=== PATIENT | female | born 1945 | race Caucasian/White ===

== ENCOUNTER 2017-02-22 14:08 | Day surgery (SDC) | payer MEDICARE, BC ==
[~2017-02-22 14:08] MED LIST: AMLO2.5T PO; ESOM1CAP16 PO; HYDR-3535 PO; IPRAAER IN; MULT-65 PO; VITA500015 PO
[2017-02-22 14:29] VITALS: BP 180/90; PULSE 96; RESP 20; TEMP 98; O2SAT 98
[2017-02-22] MEDS ORDERED: MULT1TAB46 PO (14:38)
[2017-02-22] MEDS ORDERED: ERGO2000 PO (14:38)
[2017-02-22] MEDS ORDERED: AMLO2.5T PO (14:38)
[2017-02-22] MEDS ORDERED: HYDR-3583 PO (14:38)
[2017-02-22] MEDS ORDERED: ESOM1CAP16 PO (14:38)
[2017-02-22] MEDS ORDERED: IPRAAER INH (14:38)
[2017-02-22] MEDS ORDERED: SIMV20TA PO (14:38)
--- NOTE | 2017-02-22 15:54 | RADRPT ---
EXAM DATE/TIME: 02/22/2017 00:00 [facility] COMPARISON : No previous studies available for comparison. INDICATIONS : consult for mesenteric angiogram OBJECTIVE: Temperature: 98.0 Heart Rate: 96 Blood Pressure: 180/90 Respiratory: 18 Oximetry: 98 PNEUMONIA VACCINE: NO HISTORY OF PRESENT ILLNESS: 71-year-old female with chronic abdominal pain. She states the pain began immediately following her a ortobifemoral bypass graft surgery. She states the pain is worse since his onset. The pain is debilit ating and happens constantly throughout the day. Only complete inactivity helps decrease the pain. Faviola frias describes the pain as a combination of dull ache and sharp pain. It is migratory in nature sometime s occurring in the subxiphoid region but also scattered throughout the remaining aspects of the abdom en. She reports one episode of mild gaseous distention within the left lower quadrant associated with the pain. Denies any nausea. States that she has had a colonoscopy that was negative per her report. She's having to take oxycodone approximately 3 times a day for the discomfort. She is unsure as to t he association of the pain with eating as she states she is not able to eat with the exception of adama y small amounts. Intermittently. PAST MEDICAL HISTORY : 1. Diverticulitis. 2. Mesenteric ischemia. 3. Gastroesopahgeal reflux disease. 4. gastric Ulcers. 5. Chronic obstructive pulmonary disease. 6. Hypercholesterolemia. PAST SURGICAL HISTORY : 1. partial gastrectomy 2. Appendectomy 3. revision right femoral artery (? aorto bifem bypass) SOCIAL HISTORY : No alcohol use. Tobacco; current smoker although less than previous. Now smokes 3 cigarettes a day. Patient has a ALLERGIES: 1. Latex 1. Zocor (Simvastatin) 20 mg q.h.s. 2. hydrocodone 10/325 mg t.i.d. 3. amlodipine 2.5 mg q.d. 4. omeprazole 40 mg q.d. 5. combivent inhaler b.i.d. 6. multivitamin q.d. vitamin d3 q.d. PHYSICAL EXAMINATION: General: Awake and alert. Sitting comfortably in a chair. No acute distress. Cardiovascular: Regular rate and rhythm. Respiratory: Clear to auscultation bilaterally. Abdomen: Nondistended. Normal auscultation. Nontender. Pulses: Easily palpable left radial pulse. Dopplerable left ulnar pulse. IMAGING STUDIES: CTA of the abdomen and pelvis from [facility] January 25, 2017. These images show an aortobifemo ral bypass. Atherosclerotic disease which is largely noncalcified involving the SMA origin generates a high-grade stenosis. There is a mild stenosis involving the celiac origin. The ARNOLD is occluded. ASSESSMENT: Chronic abdominal pain with significant stenosis involving the SMA and occluded ARNOLD. It is difficult to ascertain whether the patient's pain is truly relating to mesenteric ischemia. I had a long discus brandyn with the patient concerning her abdominal pain and how it may relate to insufficient blood flow to the bowel. I also explained to her that I could not guarantee this procedure would resolve or even improve her abdominal pain. I explained the risks, benefits, and alternatives of the procedure. She wished to proceed with the exam. PLAN: Left arm radial approach mesenteric angiogram with stenting of the SMA stenosis. TIME SPENT: 30 minutes Mike Garza Jr., MD on February 22, 2017 at 15:42 Board Certified Radiologist. This report was verified electronically.
== END 2017-02-22 15:30 | disposition home or self-care (01) ==
LOC: HROP 14:08 → HRIP 14:14 → HROP 15:30
PROVIDERS: ATTEND Surgery Vascular Surgery
DX: K55.1 Chronic vascular disorders of intestine (principal); G89.29 Other chronic pain; R10.9 Unspecified abdominal pain; K21.9 Gastro-esophageal reflux disease without esophagitis; J44.9 Chronic obstructive pulmonary disease, unspecified; E78.00 Pure hypercholesterolemia, unspecified; F17.210 Nicotine dependence, cigarettes, uncomplicated; Z87.19 Personal history of other diseases of the digestive system; Z79.51 Long term (current) use of inhaled steroids; Z79.899 Other long term (current) drug therapy

== ENCOUNTER 2017-03-03 07:20 | Observation (INO) | payer MEDICARE, BC ==
[~2017-03-03] VITALS: Ht 160 cm; Wt 35.9 kg
[~2017-03-03 07:20] MED LIST changes: +ERGO2000 PO; -HYDR-3535 PO; +HYDR-3583 PO; -IPRAAER IN; +IPRAAER INH; -MULT-65 PO; +MULT1TAB46 PO; +SIMV20TA PO; -VITA500015 PO
[2017-03-03] MEDS ORDERED: IODIXANOL 320 MG/ML 50 ML VIAL (for RAD SPEC) I-ARTERIAL ONE ×2 (07:21→11:00)
[2017-03-03 07:50] VITALS: BP 153/75; PULSE 59; RESP 16; TEMP 97.7; O2SAT 94
[2017-03-03] MEDS ORDERED: SODIUM CHLOR 0.9% 1000 ML INJ 1,000 ML IV SCH (08:00)
[2017-03-03 08:33] LABS: AUTOMATED NEUTROPHIL # 4.8 TH/MM3 (1.8-7.7); BASOPHIL % 0.8 % (0.0-2.0); EOSINOPHIL # 0.3 TH/MM3 (0-0.4); EOSINOPHIL % 4.5 % (0.0-4.0); HEMATOCRIT 41.9 % (35.0-46.0); HEMO FLAGS DIFF FINAL; LYMPH % 17.5 % (9.0-44.0); LYMPHOCYTE # 1.2 TH/MM3 (1.0-4.8); MEAN CELL VOLUME 92.6 FL (80.0-100.0); MEAN CORPUSCULAR HEMOGLOBIN 29.8 PG (27.0-34.0); MEAN CORPUSCULAR HGB CONC 32.2 % (32.0-36.0); MONO % 8.9 % (0.0-8.0); NEUT % 68.3 % (16.0-70.0); PLATELET COUNT 188 TH/MM3 (150-450); RED BLOOD COUNT 4.53 MIL/MM3 (4.00-5.30); RED CELL DISTRIBUTION WIDTH 14.1 % (11.6-17.2)
[2017-03-03 08:34] LABS: BASOPHIL # 0.1 TH/MM3 (0-0.2)
[2017-03-03 08:36] LABS: APTT (PATIENT) 24.3 SEC (24.3-30.1); PROTHROMBIN TIME - PATIENT 10.5 SEC (9.8-11.6)
[2017-03-03 08:39] LABS: BICARBONATE 26.4 MEQ/L (21.0-32.0); POTASSIUM 3.6 MEQ/L (3.5-5.1)
[2017-03-03] MEDS ORDERED: MIDAZOLAM HCL 2 MG/2 ML VIAL ONE ×2 (09:57→17:40)
[2017-03-03] MEDS ORDERED: fentaNYL CITRATE 250 MCG/5 ML AMP ONE ×2 (09:57→16:37)
[2017-03-03] MEDS ORDERED: ceFAZolin 2 GM PREMIX 50 ML ONE (11:18)
[2017-03-03 13:15] VITALS: BP 138/79; PULSE 62; RESP 16; TEMP 97.7; O2SAT 93
[2017-03-03 13:30] VITALS: BP 114/62; PULSE 62; RESP 16; O2SAT 93
[2017-03-03] MEDS ORDERED: NITROGLYCERIN 2% OINT 1 GM PACKET ONE (13:37)
[2017-03-03 13:45] VITALS: BP 114/67; PULSE 62; RESP 16; O2SAT 93
--- NOTE | 2017-03-03 13:53 | PD.RAD ---
Post Procedure Progress Note Pre Procedure Diagnosis: (1) Mesenteric artery stenosis (2) Abdominal pain Post Procedure Diagnosis: (1) Abdominal pain (2) Mesenteric artery stenosis Procedure Date: Mar 03, 2017 Supervising Radiologist: Mike Garza JR Proceduralist/Assist: Steffanie Stallworth, RT(R), Kasey Stark RT(R)(), Campos Guzman RT(R)() Anesthesia: Conscious Sedation Plan of Activity Patient to Unit: ROPU Patient Condition: Good See PACS Report for procedural detail/treatment Vascular-Arterial Procedure Procedure 1 Procedure Site: Superior Mesenteric Artery Procedure(s): Stent Placement Access Access Site(s): Left Brachial Artery Findings: SMA angiogram shows significant stenosis. This responded well to primary stenting. Good flow noted through the SMA following the stenting. Plan F/U with engine setter as ordered. Jr. Greg,Mike Camacho MD Mar 03, 2017 13:53
[2017-03-03 14:15] VITALS: BP 153/83; PULSE 62; RESP 16; O2SAT 94
[2017-03-03] MEDS ORDERED: HYDROmorphone HCL PF 2 MG/ML VIAL ONE (17:29)
[2017-03-03] MEDS ORDERED: HEPARIN SODIUM - IV 10,000 UNITS/10 ML VIAL ONE (17:58)
[2017-03-03] MEDS ORDERED: NITROGLYCERIN 1000 MCG/5 ML VIAL ONE (18:00)
[2017-03-03] MEDS ORDERED: PROTAMINE SULFATE 50 MG/5 ML VIAL ONE (18:05)
--- NOTE | 2017-03-03 18:57 | PD.RAD ---
Post Procedure Progress Note Pre Procedure Diagnosis: (1) Brachial artery thrombosis Post Procedure Diagnosis: (1) Brachial artery thrombosis Procedure Date: Mar 03, 2017 Supervising Radiologist: Mike Garza JR Proceduralist/Assist: Juancarlos Rosenberg RT(R), RT Deisy(R)() Anesthesia: Conscious Sedation Plan of Activity Patient to Unit: PACU Patient Condition: Good See PACS Report for procedural detail/treatment Vascular-Arterial Procedure Procedure 1 Procedure Site: Left Arm Procedure(s): Embolectomy Access Access Site(s): Right Femoral Artery Findings: Acute occlusive thrombus in left distal brachial artery. Successful embolectomy with good flow to hand. Plan Admit 23 hour observation. If doing well, home tomorrow. Jr. Greg,Mike Camacho MD Mar 03, 2017 18:57
[2017-03-03] MEDS ORDERED: CLOPIDOGREL 75 MG TAB PO ONE (19:00)
--- NOTE | 2017-03-03 19:56 | RADRPT ---
EXAM DATE/TIME: 03/03/2017 10:37 [facility] COMPARISON: No previous studies available for comparison. INDICATIONS : Patient is in need of a mesenteric angiogram for evaluation of mesenteric ischemia please see full co nsultation. Patient has abdominal pain. Prior aortobifemoral bypass.. MEDICAL HISTORY : History of gastric ulcers, diverticulitis, COPD, HTN, HLD. SURGICAL HISTORY : History of aortobifemoral bypass graft, partial gastrectomy, appendectomy. ENCOUNTER: Initial ACUITY: 4-6 months PAIN SCORE: 0/10 FLUORO TIME: 19.2 minutes IMAGE SERIES: 10 ACCESS SITE: Left brachial artery SEDATION TIME: 60 minutes CONTRAST: 1.) 85 cc Visipaque (iodixanol) MEDICATION(S): 1.) 2.5 mg midazolam (Versed) IV 2.) 125 mcg fentanyl (Sublimaze) IV Vancomycin within 2 hrs of procedure, Ancef (or alternative) within 1 hr of procedure. DEVICE(S): 1.) Superior mesenteric artery 6mm x 18mm x 150cm stent (balloon expanding) BS SD stent PROCEDURE : 1. Ultrasound-guided puncture of the brachial artery. 2. Conscious sedation with continuous EKG and Oximetry monitoring. 3. Angiography of the abdominal aorta 4. Angiography of the superior mesenteric artery 5. Stent placement of the superior mesenteric artery The risks, benefits and alternatives to the procedure were explained and verbal and written consent w as obtained. The site was prepped in sterile fashion. Full sterile technique was used, including cap, mask, steri le gloves and gown and a large sterile sheet. Hand hygiene and 2% chlorhexidine and/or betadine/alco hol prep was utilized per protocol for cutaneous antisepsis. The skin and subcutaneous tissues were infiltrated with local anesthetic solution. An Conner test was performed prior to preparing the patient for the procedure which demonstrated adequ ate collateral circulation. With ultrasound and fluoroscopic guidance the left radial was punctured w ith good arterial flow noted in the needle. Attempts at passing a 0.018 wire into the radial artery r esult in severe spasm not allowed the wire to pass. 2 other attempts were made with the same result. Attention was then turned to the brachial artery. Under direct sonographic guidance the brachial jayy ry was accessed and a 0.018 wire passed into the brachial artery without difficulty. A vascular sheat h was placed. An Omni flush catheter was passed into the abdominal aorta and an abdominal aortogram performed. This shows a patent celiac. A significant stenosis involving the SMA. A patent aortobifemoral bypass with end to side anastomosis. The SMA was then selected and a selective angiogram highlighted the stenosi s of the SMA. This is 60-70% in nature. Primary stenting was felt most prudent. A 5 [place] sheath was placed. A 6 mm x 18 mm express SD below the Wallstent was deployed within the proximal SMA. A follow up angiogram shows resolution of the stenosis with good antegrade flow through the stent. The puncture site was closed with manual pressure and hemostasis was obtained. The patient developed a small hematoma at the access site. This did compress the brachial artery blood flow was noted to th e hand with a dopplerable radial pulse. Subsequently in the holding area I noticed a coolness had dev eloped in the patient's hand and the radial pulse weakened. I performed an ultrasound which showed th rombus involving the brachial artery secondary to compression by the hematoma. It was felt that angio graphy with mechanical thrombectomy be performed. The patient was taken back to the angiography suite for this. See that report separately. Conscious sedation was performed with the prescribed dosages and duration as above in the presence of an independent trained radiology nurse to assist in the monitoring of the patient. EKG and oximetry remained stable throughout the procedure. CONCLUSION: 1. Significant stenosis involving the SMA secondary to partially calcified atheromatous plaque. This responded well to primary stenting. 2. Postoperatively the patient lost flow to the hand secondary to thrombus within the brachial artery . The patient was taken back to the interventional suite for thrombectomy. Please see that report johnnie soliz. Mike Garza Jr., MD on March 03, 2017 at 19:45 Board Certified Radiologist. This report was verified electronically.
[2017-03-03 20:00] VITALS: BP 159/67; PULSE 63; RESP 16; TEMP 99.4; O2SAT 94
[2017-03-03] MEDS: oxyCODONE/ACETAMINOPHEN 5 MG/325 MG TAB PO PRN (21:22)
[2017-03-04] VITALS: BP 143/65; PULSE 72; RESP 16; TEMP 97.9; O2SAT 93
[2017-03-04] MEDS: oxyCODONE/ACETAMINOPHEN 5 MG/325 MG TAB PO PRN ×3 (01:24→13:16)
[2017-03-04 04:00] VITALS: BP 141/66; PULSE 64; RESP 16; TEMP 97.6; O2SAT 92
[2017-03-04 08:00] VITALS: BP 160/71; PULSE 65; RESP 20; TEMP 98.3; O2SAT 95
[2017-03-04] MEDS ORDERED: CLOPIDOGREL 75 MG TAB PO SCH (09:00)
--- NOTE | 2017-03-04 09:35 | PD.CONS ---
[facility] By [facility] Physician Ronaldo Katz MD Diagnoses: History of Present Illness Mrs. Velazquez is a 71 year old female. She has a history of AAA vs. AA Stenosis with repair. She was visiting yesterday for stenting of her Mesenteric artery. This stenting was successful, but she had a complication of a thrombus at her left arm (access point). Embolectomy was performed through the right groin. She has been doing well since. No recurrence of symptoms (tingling, burning pain, swelling) at her left forearm. No new complaints today. She is ambulating well. Other past medical history was a gastric ulcer from aspirin use and a perforated appendicitis. Surgeries have been an appendectomy, and partial gastrectomy secondary to ulcer. No complaints today. No signs of recurrence of thrombus. Medically stable for discharge. Review of Systems Constitutional: DENIES: Fever, Chills, Change in appetite Endocrine: DENIES: Heat/cold intolerance Eyes: DENIES: Blurred vision, Eye pain Ears, nose, mouth, throat: DENIES: Tinnitus, Hearing loss, Vertigo Respiratory: DENIES: Apneas, Cough, Snoring, Wheezing, Shortness of breath Cardiovascular: DENIES: Chest pain, Palpitations, Syncope Gastrointestinal: DENIES: Abdominal pain, Black stools, Bloody stools Musculoskeletal: DENIES: Joint pain, Muscle aches, Stiffness Integumentary: DENIES: Abnormal pigmentation Hematologic/lymphatic: DENIES: Bruising Immunologic/allergic: DENIES: Eczema Neurologic: DENIES: Abnormal gait Psychiatric: DENIES: Anxiety, Confusion, Mood changes Past Family Social History Allergies: Coded Allergies: latex (Unverified Allergy, Mild, Rash, 02/23/17) STAPH INFECTION, RASH WHEN WEARING LATEX GLOVES Past Medical History Mesenteric artery stenosis History of gastric ulcer History of AAA Past Surgical History Partial gastrectomy secondary to ulcer Appendectomy As an circumflex artery stenting AAA repair Reported Medications Reported Meds & Active Scripts Active Reported Simvastatin 20 Mg Tab 20 Mg PO DAILY Multi Vitamin Daily (Multiple Vitamin) 1 Tab Tab 1 Tab PO DAILY Combivent Respimat Inh (Ipratropium-Albuterol Inh) 20-100 [facility]/Act Aero 1 Puff INH QID Hydrocodone-Acetaminophen 10-325 mg Tab 1 Tab PO Q4H PRN Esomeprazole DR 40 Mg Capdr 40 Mg PO DAILY Vitamin D2 (Ergocalciferol) 2,000 Unit Tab 5,000 Units PO DAILY Amlodipine (Amlodipine Besylate) 2.5 Mg Tab 2.5 Mg PO DAILY Active Ordered Medications Administered Medications Medications (Trade) Dose Ordered Sig/Todd Route PRN Reason Start Time Stop Time Status Last Admin Dose Admin Oxycodone/ Acetaminophen (Percocet 5-325 Mg) 1 tab Q4H PRN PO Pain not relieved by Tylenol 03/03/17 19:00 03/04/17 08:18 Clopidogrel Bisulfate (Plavix) 75 mg DAILY PO 03/04/17 09:00 03/04/17 08:17 Family History [place] in father No medical history in mother Social History No history of alcohol abuse No history of smoking No history of drug abuse Physical Exam Vital Signs Vital Signs Date Time Temp Pulse Resp B/P (MAP) Pulse Ox O2 Delivery O2 Flow Rate FiO2 03/04/17 04:00 97.6 64 16 141/66 (91) 92 03/04/17 00:00 97.9 72 16 143/65 (91) 93 03/03/17 23:00 18 03/03/17 20:30 62 18 135/65 (88) 96 Nasal Cannula 2 03/03/17 20:15 67 19 135/58 (83) 97 Nasal Cannula 2 03/03/17 20:00 99.4 63 16 159/67 (97) 94 03/03/17 20:00 98.0 65 20 145/67 (93) 96 Nasal Cannula 2 03/03/17 19:45 58 15 146/67 (93) 97 Nasal Cannula 3 03/03/17 19:30 56 20 126/57 (80) 97 Nasal Cannula 3 03/03/17 19:15 56 20 129/61 (83) 97 Nasal Cannula 3 03/03/17 19:00 58 20 152/69 (96) 98 Nasal Cannula 3 03/03/17 18:57 98.6 60 16 129/69 (89) 99 Nasal Cannula 3 03/03/17 14:15 62 16 153/83 (106) 94 03/03/17 13:45 62 16 114/67 (83) 93 03/03/17 13:30 62 16 114/62 (79) 93 03/03/17 13:15 97.7 62 16 138/79 (98) 93 Physical Exam GENERAL: NAD, A&Ox3, global cachexia HEAD: Normocephalic. NECK: Supple, trachea midline. No lymphadenopathy. EYES: No scleral icterus. No injection or drainage. CARDIOVASCULAR: Regular rate and rhythm without murmurs, gallops, or rubs. RESPIRATORY: Breath sounds equal bilaterally. No accessory muscle use. GASTROINTESTINAL: Abdomen soft, non-tender, nondistended. MUSCULOSKELETAL: No cyanosis, or edema. SKIN: Warm and dry. NEURO: No focal neurological deficitis. Result Diagram: 03/03/17 0800 03/03/17 0800 Imaging Last Impressions Abdominal Angiography 03/03/17 0000 Signed Impressions: Service Date/Time: , March 03, 2017 10:37 - CONCLUSION: 1. Significant stenosis involving the SMA secondary to partially calcified atheromatous plaque. This responded well to primary stenting. 2. Postoperatively the patient lost flow to the hand secondary to thrombus within the brachial artery. The patient was taken back to the interventional suite for thrombectomy. Please see that report separately. Mike Garza Jr., MD Assessment and Plan Problem List: (1) Brachial artery thrombosis ICD Code: I74.2 - Embolism and thrombosis of arteries of the upper extremities (2) Abdominal pain ICD Code: R10.9 - Unspecified abdominal pain (3) Mesenteric artery stenosis ICD Code: K55.1 - Chronic vascular disorders of intestine Assessment and Plan Assessment and plan 71-year-old female status post mesenteric artery stenting. Status post embolectomy of left brachial thrombus obtained secondary to procedure of mesenteric artery stenting. Mesenteric artery stenosis Status post mesenteric artery stenting No complaints Doing well Medically stable for discharge Brachial thrombus Status post embolectomy Asymptomatic No evidence of recurrence Medically stable for discharge DVT prophylaxis Patient is ambulatory and she'll discharged today Discharge planning Medically clear for discharge from hospitalist standpoint Benson Elkins MD Mar 04, 2017 09:35
[2017-03-04 12:00] VITALS: BP 198/86; PULSE 85; RESP 18; TEMP 97.9; O2SAT 94
--- NOTE | 2017-03-04 14:31 | RADRPT ---
EXAM DATE/TIME: 03/03/2017 16:24 [facility] COMPARISON: No previous studies available for comparison. INDICATIONS : <<Patient immediately status post angiography with left brachial access. Loss of pulses within the le ft hand. Angiography with intervention needed. MEDICAL HISTORY : <<History of gastric ulcers, diverticulitis, COPD, HTN, HLD.>> SURGICAL HISTORY : <<History of aortobifemoral bypass graft, partial gastrectomy, appendectomy>> ENCOUNTER: Initial ACUITY: 1 day PAIN SCORE: 10/10 LOCATION: Left upper arm FLUORO TIME: <<9.2>> minutes IMAGE SERIES: 10 ACCESS SITE: Right Femoral artery SEDATION TIME: <<90>> minutes CONTRAST: 1.) <<60>> <<cc>> Visipaque (iodixanol) MEDICATION(S): 1.) <<0.5>> mg midazolam (Versed) IV 2.) <<250>> mcg fentanyl (Sublimaze) IV 3.) <<1>> mg hydromorphone (Dilaudid) IV 4.) <<3,000>> units Heparin IV 5.) <<300>> mcg Nitroglycerin IART 6.) <<10>> mg Protamine IV DEVICE(S): 1.) Left brachial artery <<.068 ASCENCION penumbra>> 2.) Right common femoral artery Syvek pad PROCEDURE : 1. Ultrasound-guided puncture of the access site. 2. Conscious sedation with continuous EKG and Oximetry monitoring. 3. Angiography of the <<left upper trimming>> 4. Mechanical thrombectomy of the left brachial artery 5. Angiography of the <<right common femoral artery access site>> The risks, benefits and alternatives to the procedure were explained and verbal and written consent w as obtained. The site was prepped in sterile fashion. Full sterile technique was used, including ca p, mask, sterile gloves and gown and a large sterile sheet. Hand hygiene and 2% chlorhexidine and/or betadine/alcohol prep was utilized per protocol for cutaneous antisepsis. The skin and subcutaneous tissues were infiltrated with local anesthetic solution. With ultrasound and fluoroscopic guidance the right common femoral artery was punctured and a vascula r sheath was placed <Angiography of the access site was performed in this patient with aortobifemoral bypass. There is a stenosis involving the distal anastomosis and [place] common femoral artery. A Berenstein catheter was utilized to select the left subclavian artery. A left upper chimney angiogram was performed showing complete occlusion of the distal brachial artery secondary to thrombus. There is approximately 5 cm o f length of occluded vessel. There is reconstitution at the level of the antecubital fossa with recon stitution of the radial artery. Flow through the radial artery is significantly compromised due to th e proximal occlusion. Ulnar artery is not well opacified. Intervention was felt most prudent. An 8 Fr CareToSave neuron guide sheath was positioned in the proximal brachial artery. Through this an 068 Penumbra aspiration catheter was placed with a Spider X distal protection device deployed in the most distal brachial artery. Mechanical thrombectomy was performed with followup angiogram showing complete resol ution of the occlusive thrombus and reestablishment of flow through the brachial artery, radial arter y, interosseous artery, and ulnar artery. Flow to the hand is noted. There is mild spasm involving th e distal brachial artery which is not flow limiting. No residual thrombus.>> The puncture site was closed with manual pressure and hemostasis was obtained. The patient tolerated the procedure well and there were no complications. Conscious sedation was performed with the prescribed dosages and duration as above in the presence of an independent trained radiology nurse to assist in the monitoring of the patient. EKG and oximetry remained stable throughout the procedure. CONCLUSION: 1. Acute occlusion of the distal brachial artery secondary to thrombus. Successful mechanical thrombe ctomy utilizing the Penumbra. Reestablishment of flow to the hand. Mike Garza Jr., MD on March 04, 2017 at 13:41 Board Certified Radiologist. This report was verified electronically.
[2017-03-04 16:00] VITALS: BP 152/67; PULSE 55; RESP 18; TEMP 98.6; O2SAT 96
[2017-03-04] MEDS ORDERED: PERC5TAB12 PO ×3 (17:12→17:21)
[2017-03-04] MEDS ORDERED: PLAV75TA29 PO (17:23)
== END 2017-03-04 21:13 | disposition home or self-care (01) ==
LOC: HROP 07:20 → HRIP 07:21 → HROP 16:21 → HRIP 16:21 → H1EA 16:47 → HRIP 16:48 → HROP 20:53 → N07B 20:54
PROVIDERS: ADMIT Surgery Vascular Surgery; ATTEND Surgery Vascular Surgery
DX: I74.2 Embolism and thrombosis of arteries of the upper extremities (principal); R10.9 Unspecified abdominal pain; K55.1 Chronic vascular disorders of intestine; I10 Essential (primary) hypertension; E78.5 Hyperlipidemia, unspecified; J44.9 Chronic obstructive pulmonary disease, unspecified; F17.200 Nicotine dependence, unspecified, uncomplicated; Z79.899 Other long term (current) drug therapy
CPT/HCPCS: 36217; 36245; 37184; 37236; 75710; 75726; 76937; 80048; 85025; 85610; 85730; 99152; 99153; C1769; C1876; C1884; C1887; C1894; G0378; J0690; J1170; J1644; J2250; J2720; J3010; J7030; Q9967

== ENCOUNTER 2017-03-10 13:23 | Day surgery (SDC) | payer MEDICARE, BC ==
[~2017-03-10 13:23] MED LIST changes: +PERC5TAB12 PO; +PLAV75TA29 PO
[2017-03-10 13:40] VITALS: BP 130/75; PULSE 69; RESP 18; TEMP 98.6; O2SAT 99
--- NOTE | 2017-03-10 14:38 | RADRPT ---
EXAM DATE/TIME: 03/10/2017 00:00 [facility] COMPARISON : No previous studies available for comparison. INDICATIONS : FOLLOW UP MESENTERIC ANGIOGRAM WITH STENT OBJECTIVE: Temperature: 98.6 Heart Rate: 69 Blood Pressure: 130/75 Respiratory: 18 Oximetry: 99 HISTORY OF PRESENT ILLNESS: 71-year-old female one week status post SMA stenting secondary to abdominal pain. This was performed via a left brachial approach. She developed thrombus within the brachial artery which required thromb ectomy via a right groin access. The patient reports resolution of her abdominal pain. The patient wood s discomfort involving the medial arm overlying the access site which is improving. She reports inter mittent tingling involving the fourth and fifth digits of the left hand. Denies pain in the hand. Den ies weakness of the hand. Patient had an issue with the Plavix. She reported dizziness. PHYSICAL EXAMINATION: General: Patient is awake and alert. No acute distress. Muscle skeletal: The ecchymosis involving the medial left arm is improving. No hematoma or palpable nodule. The left h and shows normal capillary refill and palpable radial pulse. Normal sensory and motor function noted on this exam. ASSESSMENT: Patient's abdominal pain has resolved following stenting of the SMA. She still has some discomfort in volving the left arm relating to the left brachial access and resulting small hematoma. She reports i ntermittent tingling of the left fourth and fifth fingers but denies any motor weakness or sensory lo ss. This relates to median nerve irritation by the previous hematoma. This should slowly resolve over the ensuing weeks. She will resume her Plavix therapy taking it at night before bed. PLAN: Followup as needed. TIME SPENT: 15 minutes Mike Garza Jr., MD on March 10, 2017 at 14:27 Board Certified Radiologist. This report was verified electronically.
== END 2017-03-10 13:50 | disposition home or self-care (01) ==
LOC: HROP 13:23 → HRIP 13:30 → HROP 13:50
PROVIDERS: ATTEND Radiology Body Imaging
DX: K55.1 Chronic vascular disorders of intestine (principal)